=== PATIENT | male | born 1995 | race Caucasian/White ===

== ENCOUNTER 2021-06-13 15:38 | Outpatient (CLI) | payer MEDICAID ==
[2021-06-13 18:30] LABS: ALBUMIN 5.2 g/dL (3.2-5.5); ALBUMIN/GLOBULIN RATIO 1.4 (1.0-2.2); BILIRUBIN,TOTAL 0.6 mg/dL (0.2-1.0); CALCIUM 9.7 mg/dL (8.5-10.3); CREATININE 0.9 mg/dL (0.6-1.2); POTASSIUM 4.5 mmol/L (3.5-5.0)
[2021-06-13 18:47] LABS: THYROID STIMULATING HORMONE 2.23 uIU/mL (0.34-5.60)
== END 2021-06-13 15:39 | disposition home or self-care (01) ==
LOC: LAB.N 15:38
PROVIDERS: ATTEND Physician Assistant
DX: R10.9 Unspecified abdominal pain (principal); Z79.899 Other long term (current) drug therapy; R19.7 Diarrhea, unspecified; F41.1 Generalized anxiety disorder
CPT/HCPCS: 36415; 80053; 82306; 84443

== ENCOUNTER 2022-11-23 15:12 | Outpatient (CLI) | payer MEDICAID ==
--- NOTE | 2022-11-23 15:58 | CT Report ---
PROCEDURE: HEAD WO INDICATIONS: HEADACHE TECHNIQUE: Noncontrast 4.5 mm thick angled axial sections acquired from the foramen magnum to the vertex. For r adiation dose reduction, the following was used: automated exposure control, adjustment of mA and/or kV according to patient size. COMPARISON: None. FINDINGS: Image quality: There is streak artifact seen through the skull base. CSF spaces: Basal cisterns are patent. No extra-axial fluid collections. Ventricles are normal in size and shape. Brain: No midline shift. No intracranial masses or hemorrhage. Ayoub-white matter interface is norm al. Skull and face: Calvarium and visualized facial bones are intact, without suspicious lesions. Sinuses: Visualized sinuses and mastoids are clear. IMPRESSION: Normal noncontrast head CT Negative for calvarial fractures. Reviewed by: Keshav Lane MD on 11/23/2022 2:56 PM [place] Approved by: Keshav Lane MD on 11/23/2022 2:56 PM [facility] Station ID: [id number]
== END 2022-11-23 15:13 | disposition home or self-care (01) ==
LOC: DI 15:12
PROVIDERS: ATTEND Nurse Practitioner Acute Care
DX: G44.309 Post-traumatic headache, unspecified, not intractable (principal); M95.2 Other acquired deformity of head

== ENCOUNTER 2023-06-12 14:24 | Outpatient (CLI) | payer MEDICAID | END 2023-06-12 14:25 | disposition home or self-care (01) | LOC: SC 14:24 | PROVIDERS: ATTEND Nurse Practitioner Family | DX: G47.33 Obstructive sleep apnea (adult) (pediatric) (principal); R09.02 Hypoxemia | CPT/HCPCS: 95806 ==

== ENCOUNTER 2023-07-09 15:00 | Outpatient (CLI) | payer MEDICAID ==
--- NOTE | 2023-07-09 15:33 | Sleep Patient Instructions ---
Sleep Center Visit Summary - Patient Visit Information Reason for Visit: Sleep study followup - Patient Instructions Instructions Attached: CPAP Dc, CPAP Additional Instructions: You are being started on CPAP therapy with pressure setting at 4-15 cmH2O. You will need to call the sleep care office to set up your follow up once you have your APAP machine and we will schedule a visit to check compliance and response to therapy at that time. You may call the office with any concerns about pressure feeling too low or too much for adjustment, if needed. You should contact DME supplier for any questions or concerns about mask or equipment. Please call office to schedule a follow up appointment in the sleep care office one month after obtaining new device. - Clinic Information Contact: [facility] [address] [place] [address] [email or web address] T: [phone]
--- NOTE | 2023-07-09 15:35 | SLEEP CARE CONSULTATION ---
Information from patient questionnaire entered by Janis Banuelos. I have reviewed and concur with the information entered by Janis Banuelos. This document represents the service I personally performed and the decisions made by , Jordyn Harper ARNP. History of Present Illness Service Date and Time: 07/09/2023 1500 Initial [place] Sleepiness Scale score: 9 (04/23/23) Current [place] Sleepiness Scale score: 7 (07/09/23) Additional HPI information: JOSE WILLIS returns for follow up and results of the recently performed home sleep study. His HST showed mild obstructive sleep apnea with an average AHI of 9 and holli oxygen saturation of 86%. I explained the pathophysiology behind obstructive sleep apnea. We then spent quite a bit of time discussing different treatment options. For mild obstructive sleep apnea, surgery and oral appliance are alternatives to nasal CPAP therapy but in moderate or severe cases, nasal CPAP is the most effective and reliable treatment. I reviewed the impact of weight changes on sleep apnea and strongly recommended losing weight. After some discussion, the patient opted to go with the nasal CPAP therapy. Nasal autoCPAP set at 4-15 cmH20 will be ordered with rationale explained. A manual titration study will be ordered if unable to find optimal pressure with office adjustments. I explained how CPAP machine works and what to expect when using the machine. Using CPAP every night in order to get used to it was emphasized. Patient advised to put CPAP mask on before getting into bed so as not to fall asleep without CPAP. To assist acclimation to CPAP use, it could also be used for a short time during day while reading or watching TV. The patient was instructed to call the CPAP supplier to discuss any mechanical problem that may occur. If the mask given is uncomfortable or is difficult to keep on through the night even with adjustment, contact the CPAP supplier as many will replace with another mask style if notified before 30 days. If snoring or perceives is not getting enough air or too much air from the machine, notify this office. Patient does not drink alcohol. Patient was cautioned about risks of drowsy driving until sleepiness symptoms resolve. Patient denies drowsy driving. Sleep Study - Results Type of Sleep Study: Home sleep study (COMPLETED 06/13/23) Prior sleep studies: No Polysomnography/Home Sleep Study results: Physician Impression: The quality of the study is good. The length of the study is adequate (> 240 minutes). Please also see the tabulated and graphic data. 1. Obstructive Sleep Apnea-Hypopnea (ICD-10 G47.33), mild, with an AHI of 9.0/hr and holli SaO2 of 86%. During the study, the patient had 25 apneas (25 obstructive, 0 central, 0 mixed) and 43 hypopneas. The longest episode lasted 107.0 seconds. The respiratory events occurred predominantly during supine sleep (supine AHI was 32.5 and non-supine, 7.36). 2. Hypoxemia (ICD-10 R09.02), minimal, with the lowest oxygen saturation of 86 % and 0.7 minutes with SaO2 under 90%. Baseline oxygen saturation was normal (Average oxygen saturation was 96%). Allergies and Home Medications Known drug allergies: No Drug allergies reviewed: Yes Home medication list reviewed: Yes (no changes) Review of Systems Review of systems same as previous: No (Tachycardia) Physical Exam Vital signs obtained and entered by: JANIS Hobbs MA Blood Pressure: 140/84 (RIGHT) Cuff size: wrist Heart Rate: 84 O2 Saturation: 99 Height: 5 ft 9 in Weight: 363 lb 9.6 oz Body Mass Index: 53.6 BMI Classification: Morbidly Obese Impression and Plan 1. Obstructive Sleep Apnea-Hypopnea Syndrome, mild, with lowest oxygen saturation of 86%. Obviously this is the cause of the patients symptoms of unrefreshed sleep, and excessive daytime sleepiness. Positive pressure therapy could benefit anxiety. As mentioned above, the patient will be started on nasal autoCPAP therapy with pressure set at 4-15 cmH2O. Compliance guidelines also reviewed. A copy of compliance guidelines will be given for reference at check out. Because the apnea is more severe supine, I instructed to avoid sleeping supine using pillow positioning until able to start CPAP use. 2. Obesity, unspecified. Currently patients BMI is 53.6. Obesity increases the risk of apnea, CPAP pressure requirements and overall health risks especially cardiovascular and diabetes. Thus patient is advised to lose weight. * Nasal auto CPAP therapy, pressure at 4-15 cm H2O. * Attempt to lose weight. * Avoid alcohol consumption near bedtime. * Avoid supine sleep until using CPAP. * The patient is again cautioned about driving until sleepiness completely resolves. * Return one month after CPAP obtained. I will assess response to therapy and compliance at that time. Counseling Topics: Sleeping position, Weight loss health impact Visit Type: In Office Time Spent with Patient (minutes): 24 Provider Statement: I spent 100% of the Face to Face Visit with the patient with greater than 50% spent counseling the patient and coordination of care.
[2023-07-09 15:36] VITALS: BP 140/84; O2SAT 99
== END 2023-07-09 15:01 | disposition home or self-care (01) ==
LOC: SC 15:00
PROVIDERS: ATTEND Nurse Practitioner Family
DX: G47.33 Obstructive sleep apnea (adult) (pediatric) (principal); E66.01 Morbid (severe) obesity due to excess calories; Z68.43 Body mass index [BMI] 50.0-59.9, adult
CPT/HCPCS: 99212; 99213

== ENCOUNTER 2023-08-27 16:15 | Outpatient (CLI) | payer MEDICAID ==
--- NOTE | 2023-08-27 16:36 | Sleep Patient Instructions ---
Sleep Center Visit Summary - Patient Visit Information Reason for Visit: First compliance for PAP therapy - Patient Instructions Additional Instructions: You were here for follow up of CPAP therapy. You will be continued on CPAP therapy with pressure at 5-8 cmH2O. Please let us know if the pressure change is uncomfortable and we can make further adjustments of the pressure. You should follow up with sleep care in 1-2 months. You may contact us sooner for any questions or concerns. - Clinic Information Contact: [facility] [address] [place] [address] [email or web address] T: [phone]
--- NOTE | 2023-08-27 16:37 | SLEEP CARE CONSULTATION ---
Information from patient questionnaire entered by Laura Banuelos. I have reviewed and concur with the information entered by Laura Banuelos. This document represents the service I personally performed and the decisions made by me, Jordyn Harper ARNP. History of Present Illness Service Date and Time: 08/27/2023 1615 Previous diagnosis: Mild, Obstructive Sleep Apnea-Hypopnea Syndrome AHI: 9 (06/2023) Reason for follow up: first compliance Equipment type: CPAP (RESMED Airsense 10; s/u 07/2023) Equipment obtained from: Other ([facility], got initial supply) Mask style: Nasal pillows Mask brand: Resmed (AirFit P10) Backup mask available: No (will keep old mask when replaced) Last cushion change: last night Prior sleep studies: No Type of Sleep Study: Home sleep study (COMPLETED 06/13/23) HPI additional information: JOSE WILLIS was diagnosed to have mild, AHI 9, obstructive sleep apnea- hypopnea syndrome and returned today for CPAP therapy first compliance follow- up. Sleep Study - Results Type of Sleep Study: Home sleep study (COMPLETED 06/13/23) Prior sleep studies: No CPAP Compliance Data - Data Reviewed with Patient Average duration of nightly device use: 4 HRS 46 MINS Compliance rate %: 70 (07/24/23-08/22/23; days used) Current pressure setting (cmH2O): 4-15 (median 4.5, avg 6.4, max 7.2) Average residual AHI: 0.7 Central apnea: 0.2 Obstructive apnea: 0.2 Average large leak: 0 L/min Subjective Missed days of use due to: reports: mask issues, other (occasionally forgetting to put on, still getting used to it) Patient concerns: reports: condensation in mask/hose, dry mouth, nose, throat. denies: aerophagia, mask discomfort, air blowing in eyes, mask leak noise, nasal congestion, epistaxis Observed to snore while using device: No Current pressure setting perceived as: comfortable On therapy, patient: reports: sleeping better, more rested overall. denies: drowsiness while driving Initial [place] Sleepiness Scale score: 9 (04/23/23) Current [place] Sleepiness Scale score: 7 (08/27/23) Allergies and Home Medications Known drug allergies: No Drug allergies reviewed: Yes Home medication list reviewed: Yes (no changes) Allergy and home medication list: Allergies No Known Drug Allergies Allergy (Verified 08/26/23 10:14) Review of Systems Review of systems same as previous: Yes (NO CHANGE) Physical Exam Vital signs obtained and entered by: LAURA Hobbs MA Blood Pressure: 134/80 (LEFT ARM) Cuff size: long Heart Rate: 85 O2 Saturation: 98 Height: 5 ft 9 in Weight: 366 lb 6.4 oz Body Mass Index: 54.1 BMI Classification: Morbidly Obese Impression and Plan 1. Obstructive Sleep Apnea-Hypopnea Syndrome, mild, with good treatment compliance and good apnea control. On CPAP therapy, the patient has better sleep quality and is more rested overall. Patient has significant improvement of their sleep apnea and is satisfied with current CPAP therapy. The patients pressure will be changed to autoCPAP 5-8 cmH20 to reflect pressure being used. Patient advised to contact me if pressure change is uncomfortable so that it can be adjusted. Goals for apnea control discussed. Patient's apnea severity and rationale for treatment to reduce apnea, improve sleep quality and reduce cardiovascular and cerebrovascular events was reviewed. I also reviewed the benefit of consistent device use of CPAP for anxiety. 2. Obesity, unspecified. Currently patients BMI is 54.1. Obesity increases the risk of apnea, CPAP pressure requirements and overall health risks especially cardiovascular and diabetes. Thus patient is advised to lose weight. * Change auto CPAP pressure to 5-8 cmH2O * Notify me if snoring with mask or feeling that the pressure is too much or too little * Attempt to lose weight * Call this office if any problems using CPAP * Return for follow up in 1-2 months, or sooner if concerns arise Counseling Topics: Spare mask, Weight loss health impact Follow up with Sleep Care in: 1-2 months Visit Type: In Office Time Spent with Patient (minutes): 15 Provider Statement: I spent 100% of the Face to Face Visit with the patient with greater than 50% spent counseling the patient and coordination of care.
[2023-08-27 16:45] VITALS: BP 134/80; O2SAT 98
== END 2023-08-27 16:16 | disposition home or self-care (01) ==
LOC: SC 16:15
PROVIDERS: ATTEND Nurse Practitioner Family
DX: G47.33 Obstructive sleep apnea (adult) (pediatric) (principal); E66.01 Morbid (severe) obesity due to excess calories; Z68.43 Body mass index [BMI] 50.0-59.9, adult; N50.811 Right testicular pain; N50.812 Left testicular pain; N43.3 Hydrocele, unspecified
CPT/HCPCS: 99212

== ENCOUNTER 2023-08-27 17:03 | Outpatient (CLI) | payer MEDICAID ==
--- NOTE | 2023-08-28 11:48 | Ultrasound Report ---
PROCEDURE: Testicle INDICATIONS: BILATERAL TESICULAR PAIN TECHNIQUE: Real-time scanning was performed of the scrotum and testicles, with image documentation. Color and p ulse Doppler interrogation was performed of both testicles. COMPARISON: None. FINDINGS: Right: Testicle is normal in size at 4.5 x 2.2 x 2.8 cm, and homogenous in echotexture. Epididymis is normal in overall size and morphology. Trace hydrocele. No varicoceles. Overlying scrotal skin i s normal in thickness. Left: Testicle is normal in size at 4.5 x 2.5 x 2.9 cm, and homogeneous in echotexture. Epididymis is normal in overall size and morphology. Trace hydrocele. No varicoceles. Overlying scrotal skin i s normal in thickness. Doppler: Color and pulse Doppler demonstrate normal and symmetric arterial flow in both testicles. IMPRESSION: 1. No sonographic finding to explain patient's bilateral testicular pain. Normal sonographic appearan ce of the bilateral testicles. 2. Trace bilateral hydroceles. Reviewed by: Olga Chavez MD on 08/28/2023 11:46 AM PST Approved by: Olga Chavez MD on 08/28/2023 11:46 AM PST Station ID: [id number]
== END 2023-08-27 17:04 | disposition home or self-care (01) ==
LOC: DI 17:03
PROVIDERS: ATTEND Nurse Practitioner Acute Care
DX: N50.811 Right testicular pain (principal); N50.812 Left testicular pain; N43.3 Hydrocele, unspecified

== ENCOUNTER 2023-10-29 15:12 | Outpatient (CLI) | payer MEDICAID ==
--- NOTE | 2023-10-29 15:32 | Sleep Patient Instructions ---
Sleep Center Visit Summary - Patient Visit Information Reason for Visit: Two Month Followup - Patient Instructions Additional Instructions: You were here for follow up of CPAP therapy. You will be continued on CPAP therapy with pressure at 5-8 cmH2O. You should follow up with sleep care in 3 months. You may contact us sooner for any questions or concerns. - Clinic Information Contact: [facility] [address] [place] [id number] [email or web address] T: [phone]
--- NOTE | 2023-10-29 15:36 | SLEEP CARE CONSULTATION ---
Information from patient questionnaire entered by Laura Banuelos. I have reviewed and concur with the information entered by Laura Banuelos. This document represents the service I personally performed and the decisions made by , Jordyn Harper ARNP. History of Present Illness Service Date and Time: 10/29/2023 1512 Previous diagnosis: Mild, Obstructive Sleep Apnea-Hypopnea Syndrome AHI: 9 (06/2023) Reason for follow up: other (2 MONTH F/U) Equipment type: CPAP (RESMED Airsense 10; s/u 07/2023) Equipment obtained from: Other ([facility], getting supplies) Mask style: Nasal pillows Backup mask available: No Last cushion change: 1 month Prior sleep studies: No Type of Sleep Study: Home sleep study (COMPLETED 06/13/23) HPI additional information: JOSE WILLIS was diagnosed to have mild, AHI 9, obstructive sleep apnea- hypopnea syndrome and returned today for CPAP therapy two month follow-up. Sleep Study - Results Type of Sleep Study: Home sleep study (COMPLETED 06/13/23) Prior sleep studies: No CPAP Compliance Data - Data Reviewed with Patient Average duration of nightly device use: 3 HRS 41 MINS Compliance rate %: 33 (08/26/23-10/24/2023; 32/60 days used) Current pressure setting (cmH2O): 5-8 Average residual AHI: 0.6 Central apnea: 0.1 Obstructive apnea: 0.3 Average large leak: 0.3 Subjective Missed days of use due to: reports: illness (respiratory illnesses, nasal congestion) Patient concerns: reports: nasal congestion (from being sick), dry mouth, nose, throat (dry mouth, occasional). denies: aerophagia, mask discomfort, air blowing in eyes, mask leak noise, condensation in mask/hose, epistaxis Observed to snore while using device: No Current pressure setting perceived as: comfortable On therapy, patient: reports: sleeping better, awakening more refreshed, being more awake and alert during the day, more rested overall. denies: drowsiness while driving Initial [place] Sleepiness Scale score: 9 (04/23/23) Current [place] Sleepiness Scale score: 8 (10/29/23) Allergies and Home Medications Known drug allergies: No Drug allergies reviewed: Yes Home medication list reviewed: Yes (topiramate 20 mg for post traumatic headache) Allergy and home medication list: Allergies No Known Drug Allergies Allergy (Verified 10/25/23 15:58) Review of Systems Review of systems same as previous: No (OST TRAUMA HEADACHES) Physical Exam Vital signs obtained and entered by: LAURA Hobbs MA Blood Pressure: 148/103 (RIGHT) Cuff size: wrist Heart Rate: 86 O2 Saturation: 98 Height: 5 ft 9 in Weight: 369 lb 3.2 oz Body Mass Index: 54.5 BMI Classification: Morbidly Obese Impression and Plan 1. Obstructive Sleep Apnea-Hypopnea Syndrome, mild, with poor treatment compliance and good apnea control. On CPAP therapy, the patient has better sleep quality and is more rested overall. Patient states his compliance has been affected due to multiple respiratory illnesses. He states the nasal congestion makes it hard to wear his mask. He wants to get using his CPAP again because he does feel better when using his CPAP. He did reach compliance and his initial compliance timeframe. I encouraged him to continue to try and increase his compliance. He voiced understanding. Patient's apnea severity and rationale for treatment to reduce apnea, improve sleep quality and reduce cardiovascular and cerebrovascular events was reviewed. I also reviewed the benefit of consistent device use of CPAP for anxiety. 2. Obesity, unspecified. Currently patients BMI is 54.5. Obesity increases the risk of apnea, CPAP pressure requirements and overall health risks especially cardiovascular and diabetes. Thus patient is advised to lose weight. * Continue auto CPAP pressure at 5-8 cmH2O * Notify me if snoring with mask or feeling that the pressure is too much or too little * Attempt to lose weight * Call this office if any problems using CPAP * Return for follow up in 3 months, or sooner if concerns arise Counseling Topics: Weight loss health impact Follow up with Sleep Care in: 3 months Visit Type: In Office Time Spent with Patient (minutes): 12 Provider Statement: I spent 100% of the Face to Face Visit with the patient with greater than 50% spent counseling the patient and coordination of care.
[2023-10-29 15:44] VITALS: BP 148/103; O2SAT 98
== END 2023-10-29 15:13 | disposition home or self-care (01) ==
LOC: SC 15:12
PROVIDERS: ATTEND Nurse Practitioner Family
DX: G47.33 Obstructive sleep apnea (adult) (pediatric) (principal); E66.01 Morbid (severe) obesity due to excess calories; Z68.43 Body mass index [BMI] 50.0-59.9, adult
CPT/HCPCS: 99212

== ENCOUNTER 2024-03-06 14:54 | Outpatient (CLI) | payer MEDICAID ==
--- NOTE | 2024-03-06 15:10 | Sleep Patient Instructions ---
Sleep Center Visit Summary - Patient Visit Information Reason for Visit: 3-month follow-up - Patient Instructions Additional Instructions: You were here for follow up of CPAP therapy. You will be continued on CPAP therapy with pressure at 5-8 cmH2O. You should follow up with sleep care in 1-2 months. You may contact us sooner for any questions or concerns. - Clinic Information Contact: [facility] [address] [place] [id number] [email or web address] T: [phone]
--- NOTE | 2024-03-06 15:13 | SLEEP CARE CONSULTATION ---
Information from patient questionnaire entered by Laura Banuelos. I have reviewed and concur with the information entered by Laura Banuelos. This document represents the service I personally performed and the decisions made by , Jordyn Harper ARNP. History of Present Illness Service Date and Time: 03/06/2024 1454 Previous diagnosis: Mild, Obstructive Sleep Apnea-Hypopnea Syndrome AHI: 9 (06/2023) Reason for follow up: three month (F/U) Equipment type: CPAP (RESMED Airsense 10; s/u 07/2023) Equipment obtained from: Other ([facility], getting supplies) Mask style: Nasal pillows Mask brand: Resmed (Airfit P10) Backup mask available: Yes Last cushion change: 2 days ago Prior sleep studies: No Type of Sleep Study: Home sleep study (COMPLETED 06/13/23) HPI additional information: JOSE WILLIS was diagnosed to have mild, AHI 7, obstructive sleep apnea- hypopnea syndrome and returned today for CPAP therapy three month follow-up. Sleep Study - Results Type of Sleep Study: Home sleep study (COMPLETED 06/13/23) Prior sleep studies: No CPAP Compliance Data - Data Reviewed with Patient Average duration of nightly device use: 5 hours 45 mins Compliance rate %: 20 (11/07/23-02/04/24; 05/05 days used) Current pressure setting (cmH2O): 5-8 Average residual AHI: 0.8 Central apnea: 0.2 Obstructive apnea: 0.1 Average large leak: 0 L/min Subjective Missed days of use due to: reports: travel, other (waiting for supplies) Patient concerns: denies: aerophagia, mask discomfort, air blowing in eyes, mask leak noise, condensation in mask/hose, nasal congestion, dry mouth, nose, throat, epistaxis Observed to snore while using device: No Current pressure setting perceived as: comfortable On therapy, patient: reports: sleeping better, awakening more refreshed, being more awake and alert during the day, more rested overall. denies: drowsiness while driving Initial [place] Sleepiness Scale score: 9 (04/23/23) Current [place] Sleepiness Scale score: 4 Allergies and Home Medications Known drug allergies: No Drug allergies reviewed: Yes Home medication list reviewed: Yes (no changes) Allergy and home medication list: Allergies No Known Drug Allergies Allergy Review of Systems Review of systems same as previous: Yes (no changes) Physical Exam Vital signs obtained and entered by: LAURA Hobbs MA Blood Pressure: 167/93 (LEFT ARM) Cuff size: long Heart Rate: 89 O2 Saturation: 97 Height: 5 ft 9 in Weight: 372 lb Body Mass Index: 54.9 BMI Classification: Morbidly Obese Impression and Plan 1. Obstructive Sleep Apnea-Hypopnea Syndrome, mild, with poor treatment compliance and good apnea control. On CPAP therapy, the patient has better sleep quality and is more rested overall. He says he is just had struggles with falling asleep with the mask on his face. He will give up after about an hour or so. He also went on a trip with family and did not take his CPAP with him. He says since getting back from the trip he has been using the mask more and able to keep it on all night. His average night is just under 6 hours in the last month. I will have him come back again in 1 to 2 months to recheck compliance. He promised to have some good use on his CPAP when he comes back. Patient's apnea severity and rationale for treatment to reduce apnea, improve sleep quality and reduce cardiovascular and cerebrovascular events was reviewed. I also reviewed the benefit of consistent device use of CPAP for anxiety. 2. Obesity, unspecified. Currently patients BMI is 54.9. Obesity increases the risk of apnea, CPAP pressure requirements and overall health risks especially cardiovascular and diabetes. Thus patient is advised to lose weight. * Continue auto CPAP pressure at 5-8 cmH2O * Notify me if snoring with mask or feeling that the pressure is too much or too little * Attempt to lose weight * Call this office if any problems using CPAP * Return for follow up in 1-2 months, or sooner if concerns arise Follow up with Sleep Care in: 1-2 months Visit Type: In Office Time Spent with Patient (minutes): 14 Provider Statement: I spent 100% of the Face to Face Visit with the patient with greater than 50% spent counseling the patient and coordination of care.
[2024-03-06 15:17] VITALS: BP 167/93; O2SAT 97
== END 2024-03-06 14:55 | disposition home or self-care (01) ==
LOC: SC 14:54
PROVIDERS: ATTEND Nurse Practitioner Family
DX: G47.33 Obstructive sleep apnea (adult) (pediatric) (principal); E66.01 Morbid (severe) obesity due to excess calories; Z68.43 Body mass index [BMI] 50.0-59.9, adult
CPT/HCPCS: 99212

== ENCOUNTER 2024-04-29 14:56 | Outpatient (CLI) | payer MEDICAID ==
--- NOTE | 2024-04-29 15:47 | Sleep Patient Instructions ---
Sleep Center Visit Summary - Patient Visit Information Reason for Visit: 6-week follow-up - Patient Instructions Additional Instructions: You were here for follow up of CPAP therapy. You will be continued on CPAP therapy with pressure at 5-8 cmH2O. You should follow up with sleep care in 1-2 months. You may contact us sooner for any questions or concerns. - Clinic Information Contact: [facility] [address] [place] [id number] [email or web address] T: [phone]
--- NOTE | 2024-04-29 15:50 | SLEEP CARE CONSULTATION ---
Information from patient questionnaire entered by Laura Banuelos. I have reviewed and concur with the information entered by Laura Banuelos. This document represents the service I personally performed and the decisions made by , Jordyn Harper ARNP. History of Present Illness Service Date and Time: 04/29/2024 1456 Previous diagnosis: Mild, Obstructive Sleep Apnea-Hypopnea Syndrome AHI: 9 (06/2023) Reason for follow up: other (6 WEEK F/U) Equipment type: CPAP (RESMED Airsense 10; s/u 07/2023) Equipment obtained from: Other ([facility], getting supplies) Mask style: Nasal pillows Backup mask available: Yes Last cushion change: 2 weeks Prior sleep studies: No Type of Sleep Study: Home sleep study (COMPLETED 06/13/23) HPI additional information: JOSE WILLIS was diagnosed to have mild, AHI 9, obstructive sleep apnea- hypopnea syndrome and returned today for CPAP therapy six week follow-up. Sleep Study - Results Type of Sleep Study: Home sleep study (COMPLETED 06/13/23) Prior sleep studies: No CPAP Compliance Data - Data Reviewed with Patient Average duration of nightly device use: 5 HRS 19 MINS Compliance rate %: 14 (03/14/24-04/26/24; 7/44 days used) Current pressure setting (cmH2O): 5-8 Average residual AHI: 0.5 Central apnea: 0.1 Obstructive apnea: 0.1 Hypopnea: 0.3 Average large leak: 0 L/min Subjective Missed days of use due to: reports: illness, travel, other (dozed off without mask) Patient concerns: reports: air blowing in eyes (can be postional). denies: aerophagia, mask discomfort, mask leak noise, condensation in mask/hose, nasal congestion, dry mouth, nose, throat, epistaxis Observed to snore while using device: No Current pressure setting perceived as: comfortable On therapy, patient: reports: sleeping better, more rested overall. denies: drowsiness while driving (he does not drive) Initial Imler Sleepiness Scale score: 9 (04/23/23) Current Imler Sleepiness Scale score: 5 (04/29/24) Allergies and Home Medications Known drug allergies: No Drug allergies reviewed: Yes Home medication list reviewed: Yes (no changes) Allergy and home medication list: Allergies No Known Drug Allergies Allergy (Verified 04/27/24 11:08) Review of Systems Review of systems same as previous: Yes (NO CHANGE) Physical Exam Vital signs obtained and entered by: LAURA Hobbs MA Blood Pressure: 153/82 (LEFT ARM) Cuff size: long Heart Rate: 86 O2 Saturation: 97 Height: 5 ft 9 in Weight: 371 lb 3.2 oz Weight change since last visit: 1 lb loss Body Mass Index: 54.8 BMI Classification: Morbidly Obese Impression and Plan 1. Obstructive Sleep Apnea-Hypopnea Syndrome, mild, with poor treatment compliance and good apnea control. On CPAP therapy, the patient has better sleep quality and is more rested overall. He had plans trying to use his CPAP more but became so busy that he forgot more often than not to use his CPAP. He says he will be less busy over the next month and wants to try again to increase his compliance. He is committed to trying to improve his use of his CPAP because he does notice a difference when he uses it. I will have him come back in 1 to 2 months to check his compliance. Patient's apnea severity and rationale for treatment to reduce apnea, improve sleep quality and reduce cardiovascular and cerebrovascular events was reviewed. I also reviewed the benefit of consistent device use of CPAP for anxiety. 2. Obesity, unspecified. Currently patients BMI is 54.8. He is meeting with a transition advisor to discuss ways to eat better for weight loss. Obesity increases the risk of apnea, CPAP pressure requirements and overall health risks especially cardiovascular and diabetes. Thus patient is advised to continue to try to lose weight. * Continue auto CPAP pressure at 5-8 cmH2O * Notify me if snoring with mask or feeling that the pressure is too much or too little * Attempt to lose weight * Call this office if any problems using CPAP * Return for follow up in 1-2 months, or sooner if concerns arise Counseling Topics: Spare mask, Weight loss health impact Follow up with Sleep Care in: 1-2 months Visit Type: In Office Time Spent with Patient (minutes): 13 Provider Statement: I spent 100% of the Face to Face Visit with the patient with greater than 50% spent counseling the patient and coordination of care.
[2024-04-29 15:59] VITALS: BP 153/82; O2SAT 97
== END 2024-04-29 14:57 | disposition home or self-care (01) ==
LOC: SC 14:56
PROVIDERS: ATTEND Nurse Practitioner Family
DX: G47.33 Obstructive sleep apnea (adult) (pediatric) (principal); E66.01 Morbid (severe) obesity due to excess calories; Z68.43 Body mass index [BMI] 50.0-59.9, adult
CPT/HCPCS: 99212

== ENCOUNTER 2024-05-21 13:40 | Outpatient (CLI) | payer MEDICAID | END 2024-05-21 13:41 | disposition home or self-care (01) | LOC: NS 13:40 | PROVIDERS: ATTEND Nurse Practitioner Acute Care | DX: Z71.3 Dietary counseling and surveillance (principal); E66.9 Obesity, unspecified; Z68.43 Body mass index [BMI] 50.0-59.9, adult | CPT/HCPCS: 97802 ==